=== PATIENT | female | born 1965 | race Caucasian/White ===

== ENCOUNTER 2017-05-19 20:41 | Emergency (ER) | payer OTHER ==
[~2017-05-19] VITALS: Ht 172.7 cm; Wt 81.8 kg
[2017-05-19] MEDS ORDERED: ketorolac trometh inj. 60 MG/2 ML VIAL IM ONE (23:15)
[2017-05-19] MEDS ORDERED: DICL50TA8 PO (23:17)
[2017-05-20] VITALS: BP 126/79
== END 2017-05-20 00:03 | disposition home or self-care (01) ==
LOC: ER 20:42
DX: M25.512 Pain in left shoulder (principal); Z88.0 Allergy status to penicillin
CPT/HCPCS: 73030; 96372; 99284; J1885

== ENCOUNTER 2021-12-21 17:25 | Emergency (ER) | payer SELFPAY ==
[~2021-12-21 17:25] MED LIST: DICL50TA8 PO
== END 2021-12-21 20:23 | disposition left against medical advice (07) ==
LOC: ER 17:26
DX: M79.89 Other specified soft tissue disorders (principal); Z53.21 Procedure and treatment not carried out due to patient leaving prior to being seen by health care provider